=== PATIENT | male | born 1975 | race Caucasian/White ===

== ENCOUNTER 2017-06-24 15:08 | Emergency (ER) | payer BC ==
--- NOTE | 2017-06-24 15:27 | EDM.PDOC ---
ED HPI GENERAL MEDICAL PROBLEM - General Chief Complaint: Gastrointestinal Problem Stated Complaint: SICK Time Seen by Provider: 06/24/17 15:27 Source of Information: Reports: Patient - History of Present Illness INITIAL COMMENTS - FREE TEXT/NARRATIVE: HISTORY AND PHYSICAL: History of present illness: [Patient developed acute onset vomiting diarrhea and mild abdominal pain in the right lower quadrant this morning at 8 AM No fever chills or sweats no chest pain shortness breath or palpitation no bowel or urine symptoms mild headache Patient has a history of concussion last week he was seen through [facility] and head CT performed without acute findings per patient ] Review of systems: As per history of present illness and below otherwise all systems reviewed and negative. Past medical history: As per history of present illness and as reviewed below otherwise noncontributory. Surgical history: As per history of present illness and as reviewed below otherwise noncontributory. Social history: No reported history of drug or alcohol abuse. Family history: As per history of present illness and as reviewed below otherwise noncontributory. Physical exam: HEENT: Atraumatic, normocephalic, pupils reactive, negative for conjunctival pallor or scleral icterus, mucous membranes moist, throat clear, neck supple, nontender, trachea midline. Lungs: Clear to auscultation, breath sounds equal bilaterally, chest nontender. Heart: S1S2, regular, negative for clicks, rubs, or JVD. Abdomen: Soft, nondistended, tender in the right lower quadrant with no guarding or rebound. Negative for masses or hepatosplenomegaly. Negative for costovertebral tenderness. Pelvis: Stable nontender. Genitourinary: Deferred. Rectal: Deferred. Extremities: Atraumatic, negative for cords or calf pain. Neurovascular unremarkable. Neuro: Awake, alert, oriented. Cranial nerves II through XII unremarkable. Cerebellum unremarkable. Motor and sensory unremarkable throughout. Exam nonfocal. Diagnostics: [CBC CMP UA lipase Abdomen pelvis with contrast ] Therapeutics: [1 L normal saline bolus Zofran 8 mg IV ] Cipro 500 by mouth twice a day #20 no refill Impression: [ gastroenteritis ] Early evidence of mesenteric adenitis Definitive disposition and diagnosis as appropriate pending reevaluation and review of above. Abdomen Pain Score (Numeric/FACES): 6 - Related Data Allergies Allergy/AdvReac Type Severity Reaction Status Date / Time No Known Allergies Allergy Verified 06/24/17 15:38 Home Meds: Home Meds Levothyroxine [Synthroid] 88 mcg PO DAILY 06/24/17 [History] Testosterone Cypionate 200 mg IM 06/24/17 [History] buPROPion HCl [Wellbutrin Xl] 150 mg PO DAILY 06/24/17 [History] buPROPion HCl [Wellbutrin Xl] 300 mg PO DAILY 06/24/17 [History] ED ROS GENERAL - Review of Systems Review Of Systems: ROS reveals no pertinent complaints other than HPI. ED EXAM, GENERAL - Physical Exam Exam: See Below Course - Vital Signs Last Recorded V/S: Last Vital Signs Temp 96.9 F 06/24/17 16:35 Pulse 100 06/24/17 15:37 Resp 20 06/24/17 15:37 BP 134/80 06/24/17 15:37 Pulse Ox 98 06/24/17 15:37 - Orders/Labs/Meds Orders: Active Orders 24 hr Category Date Time Status Abdomen Pelvis w Cont [CT] Stat Exams 06/24/17 16:06 Taken UA W/MICROSCOPIC [URIN] Stat Lab 06/24/17 17:39 Ordered Labs: Laboratory Tests 06/24/17 06/24/17 Range/Units 15:33 15:33 WBC 13.71 H (4.0-11.0) K/uL RBC 5.29 (4.50-5.90) M/uL Hgb 16.3 (13.0-17.0) g/dL Hct 49.1 (38.0-50.0) % MCV 92.8 (80.0-98.0) fL MCH 30.8 (27.0-32.0) pg MCHC 33.2 (31.0-37.0) g/dL RDW Std Deviation 45.1 (28.0-62.0) fl RDW Coeff of Ebenezer 13 (11.0-15.0) % Plt Count 190 (150-400) K/uL MPV 11.70 (7.40-12.00) fL Neut % (Auto) 92.3 H (48.0-80.0) % Lymph % (Auto) 2.2 L (16.0-40.0) % [place] % (Auto) 4.7 (0.0-15.0) % Eos % (Auto) 0.7 (0.0-7.0) % Baso % (Auto) 0.1 (0.0-1.5) % Neut # (Auto) 12.6 H (1.4-5.7) K/uL Lymph # (Auto) 0.3 L (0.6-2.4) K/uL [place] # (Auto) 0.7 (0.0-0.8) K/uL Eos # (Auto) 0.1 (0.0-0.7) K/uL Baso # (Auto) 0.0 (0.0-0.1) K/uL Nucleated RBC % 0.0 /100WBC Nucleated RBCs # 0 K/uL Sodium 139 (136-148) mmol/L Potassium 4.4 (3.5-5.1) mmol/L Chloride 104 (98-107) mmol/L Carbon Dioxide 22.5 (21.0-32.0) mmol/L BUN 22 H (7.0-18.0) mg/dL Creatinine 1.3 (0.8-1.3) mg/dL Est Cr Clr Drug Dosing 92.34 mL/min Estimated GFR (MDRD) > 60.0 ml/min Glucose 142 H (74-106) mg/dL Calcium 9.3 (8.5-10.1) mg/dL Total Bilirubin 0.5 (0.2-1.0) mg/dL AST 21 (15-37) IU/L ALT 24 (14-63) IU/L Alkaline Phosphatase 75 (46-116) U/L Total Protein 7.7 (6.4-8.2) g/dL Albumin 4.3 (3.4-5.0) g/dL Globulin 3.4 (2.0-3.5) g/dL Albumin/Globulin Ratio 1.3 (1.3-2.8) Lipase 76 (73-393) U/L Meds: Medications Discontinued Medications Generic Name Dose Route Start Last Admin Trade Name Freq PRN Reason Stop Dose Admin Sodium Chloride 1,000 mls @ 999 mls/hr 06/24/17 16:01 06/24/17 16:33 Normal Saline IV 06/24/17 17:01 999 mls/hr STAT ONE Administration Iopamidol 100 ml 06/24/17 16:56 06/24/17 16:57 Isovue Multipack-370 (76%) IVPUSH 06/24/17 16:57 100 ml ONETIME STA Administration Ondansetron HCl 8 mg 06/24/17 16:01 06/24/17 16:31 Zofran IVPUSH 06/24/17 16:02 8 mg ONETIME ONE Administration Departure - Departure Time of Disposition: 17:46 Disposition: Home, Self-Care 01 Condition: Good Clinical Impression: Gastroenteritis, Mesenteric adenitis - Discharge Information Referrals: Lorene Yost NP [Primary Care Provider] - Forms: ED Department Discharge Additional Instructions: Fluid hydration techniques as discussed Return if symptoms persist or worsen Medication as prescribed Follow-up with primary care 2 weeks sooner as needed [facility] - Primary Care [address] [place] [id number] The following information is given to patients seen in the emergency department who are being discharged to home. This information is to outline your options for follow-up care. We provide all patients seen in our emergency department with a follow-up referral. The need for follow-up, as well as the timing and circumstances, are variable depending upon the specifics of your emergency department visit. If you don't have a primary care physician on staff, we will provide you with a referral. We always advise you to contact your personal physician following an emergency department visit to inform them of the circumstance of the visit and for follow-up with them and/or the need for any referrals to a consulting specialist. The emergency department will also refer you to a specialist when appropriate. This referral assures that you have the opportunity for follow-up care with a specialist. All of these measure are taken in an effort to provide you with optimal care, which includes your follow-up. Under all circumstances we always encourage you to contact your private physician who remains a resource for coordinating your care. When calling for follow-up care, please make the office aware that this follow-up is from your recent emergency room visit. If for any reason you are refused follow-up, please contact the [facility] emergency department at and asked to speak to the emergency department charge nurse. - My Orders Last 24 Hours: My Active Orders 06/24/17 16:06 Abdomen Pelvis w Cont [CT] Stat 06/24/17 17:39 UA W/MICROSCOPIC [URIN] Stat - Assessment/Plan Last 24 Hours: My Active Orders 06/24/17 16:06 Abdomen Pelvis w Cont [CT] Stat 06/24/17 17:39 UA W/MICROSCOPIC [URIN] Stat
[2017-06-24] MEDS ORDERED: Sodium Chloride 0.9% 1,000 ML IV ONE (16:01)
[2017-06-24] MEDS ORDERED: Ondansetron 4 MG/2 ML SDV IVPUSH ONE (16:01)
[2017-06-24 16:09] LABS: CHLORIDE,CL 104 mmol/L (98-107); SODIUM,NA 139 mmol/L (136-148)
[2017-06-24] MEDS ORDERED: Iopamidol 755 MG/ML 200 ML Multipack Bottle IVPUSH STA (16:56)
--- NOTE | 2017-06-25 13:33 | CT ---
EXAM DATE: 06/24/17 PATIENT'S AGE: 42 Patient: JANNET HERNANDEZ Facility: [place], [place] Site . Site : 1975 Study: CT Abdomen/Pelvis [id number] 4:59:36 PM Ordering Physician: Ranjan Mike Final Report: All INDICATION: Abdominal pain. Nausea/vomiting. Dizzy. TECHNIQUE: CT abdomen and pelvis performed after IV injection of 100 mL of Isovue-370. 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 Cholecystectomy. Moderate diffuse fatty Precious of liver. Minimal platelike atelectasis in the lung bases. Small bleb left lower lobe. Small low-density lesion along the surface of the right mid to upper posterior hepatic lobe on image 51 is nonspecific but appears benign. Spleen is mildly enlarged in AP dimension at 13.5 cm. Parapelvic cysts in both kidneys. High density in the right renal pelvis region could be related to Terence early excreted contrast but is not specific. Small amount of fluid in the lower anterior pelvis bilaterally consistent with prior surgery. Abnormal increased number of ill-defined nonenlarged aortocaval and left periaortic abdominal retroperitoneal lymph nodes are nonspecific in etiology. Benign etiology would be favored. Numerous tiny calcified nodules in the buttocks likely related to prior injections. Contents of the colon are largely fluid which could suggest the patient has diarrhea or stone will. No CT evidence for colitis. Small rounded density in the mid-anterior abdominal omentum on image 78 measures 1 cm and could be related to and small area of previous fatty necrosis. Remainder negative. IMPRESSION: 1. No acute disease in abdomen or pelvis. 2. Spleen mildly enlarged. 3. Contents of the colon are largely fluid which could suggest the patient has or will soon have diarrhea. No CT evidence of colitis. 4. Small amount of fluid in the pelvis anteriorly and bilaterally likely related to prior surgery. Please note that all CT scans at this facility use dose modulation, iterative reconstruction, and/or weight-based dosing when appropriate to reduce radiation dose to as low as reasonably achievable. Dictated by Danyel Mancuso MD @ Jun 24 2017 5:20PM (Electronic Signature) Report Signed by Proxy. MTDD
== END 2017-06-24 18:46 | disposition home or self-care (01) ==
LOC: MW.ED 15:08
DX: K52.9 Noninfective gastroenteritis and colitis, unspecified (principal); I88.0 Nonspecific mesenteric lymphadenitis; Z79.899 Other long term (current) drug therapy
CPT/HCPCS: 36415; 74177; 80053; 81001; 83690; 85025; 96361; 96374; 99284; J2405; J7040; Q9967

== ENCOUNTER 2017-11-03 19:00 | Observation (INO) | payer BC ==
[2017-11-03] MEDS ORDERED: Sodium Chloride 0.9% 2.5 ML Syringe FLUSH PRN (19:02)
[2017-11-03] MEDS ORDERED: Sodium Chloride 0.9% 1,000 ML IV ONE (19:02)
[2017-11-03] MEDS ORDERED: Sodium Chloride 0.9% 10 ML Syringe FLUSH PRN (19:02)
[2017-11-03] MEDS ORDERED: HYDROmorphone 1 MG/ML Syringe IVPUSH ONE (19:02)
[2017-11-03] MEDS ORDERED: Ondansetron 4 MG/2 ML SDV IVPUSH ONE (19:02)
--- NOTE | 2017-11-03 19:24 | EDM.PDOC ---
ED HPI GENERAL MEDICAL PROBLEM - General Chief Complaint: Trauma Stated Complaint: OBJECT FELL ON PT Time Seen by Provider: 11/03/17 19:00 - History of Present Illness INITIAL COMMENTS - FREE TEXT/NARRATIVE: HISTORY AND PHYSICAL: History of present illness: The patient is a 42-year-old male with a history of hypothyroidism who presents via EMS after a car fell onto his right femur while he was working on it. Prior to these events he was in his usual state of good health and had no systemic complaints and currently in the ED he is only complaining of pain at his right thigh area. He has no proximal hip or distal knee pain no tib-fib pain and says that he feels like his foot is slightly numb but doesn't feel cold and he can remove it. He has no other injuries to his other lower extremity on the left and trunk is without any injuries. He did not receive any pain medications in route and he last ate food at 4 PM. Is no chest pain shortness breath abdominal pain nausea vomiting and no head or neck or back pain. Tetanus is up-to-date per patient testimony Review of systems: As per history of present illness and below otherwise all systems reviewed and negative. Past medical history: As per history of present illness and as reviewed below otherwise noncontributory. Surgical history: As per history of present illness and as reviewed below otherwise noncontributory. Social history: No reported history of drug or alcohol abuse. Family history: As per history of present illness and as reviewed below otherwise noncontributory. Physical exam: General: Well-developed well-nourished overweight man who is nontoxic and vital signs are noted by me HEENT: Atraumatic, normocephalic, pupils reactive, negative for conjunctival pallor or scleral icterus, mucous membranes moist, throat clear, neck supple, nontender, trachea midline. There are no midline step-offs or defects of the cervical spine Lungs: Clear to auscultation, breath sounds equal bilaterally, chest nontender. Heart: S1S2, regular rate and rhythm no overt murmurs Abdomen: Soft, nondistended, nontender. Negative for masses or hepatosplenomegaly. NABS Pelvis: Stable nontender. No lateral hip tenderness Genitourinary: Deferred. Rectal: Deferred. Extremities: Atraumatic full range of motion of all extremities with the exception of the right lower extremity. At the anterior right thigh midpoints in the thigh there is visible significant indentation and trauma to the skin without any discrete skin break and there is swelling of the thigh but it is soft to palpation and tender. The proximal hip is without tenderness and the distal knee is also without tenderness defects deformity or soft tissue swelling. The patient can range of motion minimally at the hip and knee but there is discomfort in the femur area with this. Distally the patient has a strong triphasic posterior tib-fib pulse and a more distant dorsalis pedis by Doppler. Color is good in the distal foot as is motor and sensation and cap refill is normal. The legs are, negative for cords or calf pain. Neurovascular unremarkable. Neuro: Awake, alert, oriented. Cranial nerves II through XII unremarkable. Cerebellum unremarkable. Motor and sensory unremarkable throughout. Exam nonfocal. Diagnostics: X-ray of the right femur CBC CMP INR CPK type and screen CTA scan with contrast of the right lower extremity Therapeutics: IV fluids Dilaudid Zofran His case was called as a trauma alert and Dr. Peterson was at bedside at 19 10 PM. She is review the x-rays and would like a CT with contrast performed of the extremity as the proximity of the injury which is at mid thigh follows the course of the femoral artery and she is concerned. She has personally seen and evaluated the patient please her consult for details. CTA of the leg is still pending but at this point with the labs that have been obtained and the clinical presentation the patient will be admitted here for observation per Dr. Peterson. Please see her consult for further details and evaluation. Impression: Right thigh crush injury Definitive disposition and diagnosis as appropriate pending reevaluation and review of above. Right Upper Leg Pain Score (Numeric/FACES): 6 - Related Data Allergies Allergy/AdvReac Type Severity Reaction Status Date / Time No Known Allergies Allergy Verified 11/03/17 19:12 Home Meds: Home Meds Levothyroxine [Synthroid] 88 mcg PO DAILY 06/24/17 [History] Past Medical History HEENT History: Reports: None Cardiovascular History: Reports: None Respiratory History: Reports: None Genitourinary History: Reports: None Musculoskeletal History: Reports: None Neurological History: Reports: None Psychiatric History: Reports: Depression Endocrine/Metabolic History: Reports: Hypothyroidism Hematologic History: Reports: None Immunologic History: Reports: None Oncologic (Cancer) History: Reports: None Dermatologic History: Reports: None - Infectious Disease History Infectious Disease History: Reports: None - Past Surgical History Head Surgeries/Procedures: Reports: None GI Surgical History: Reports: Cholecystectomy, Hernia, Inguinal Social & Family History - Family History Family Medical History: Noncontributory - Tobacco Use Smoking Status *Q: Never Smoker - Caffeine Use Caffeine Use: Reports: None - Recreational Drug Use Recreational Drug Use: No Review of Systems - Review of Systems Review Of Systems: ROS reveals no pertinent complaints other than HPI. ED EXAM, GENERAL - Physical Exam Exam: See Below (See dictation) Course - Vital Signs Last Recorded V/S: Last Vital Signs Temp 35.8 C 11/03/17 19:00 Pulse 101 H 11/03/17 19:16 Resp 18 11/03/17 19:16 BP 141/94 H 11/03/17 19:16 Pulse Ox 100 11/03/17 19:16 - Orders/Labs/Meds Orders: Active Orders 24 hr Category Date Time Status Admission Status [Patient Status] [ADT] Stat ADT 11/03/17 19:14 Active Notify Provider Consults [RC] ASDIRECTED Care 11/03/17 19:18 Active Consult to Physician [CONS] Stat Cons 11/03/17 19:18 Active Ang Lower Extremity Rt [CT] Stat Exams 11/03/17 19:18 Ordered Femur Min 2V Rt [CR] Stat Exams 11/03/17 19:02 Taken TYPE AND SCREEN [BBK] Stat Lab 11/03/17 19:11 Received Sodium Chloride 0.9% [Saline Flush] Med 11/03/17 19:02 Active 10 ml FLUSH ASDIRECTED PRN Sodium Chloride 0.9% [Saline Flush] Med 11/03/17 19:02 Active 2.5 ml FLUSH ASDIRECTED PRN Saline Lock Insert [OM.PC] Stat Oth 11/03/17 19:02 Ordered Medication Orders Sodium Chloride (Saline Flush) 10 ml FLUSH ASDIRECTED PRN PRN Reason: Keep Vein Open Sodium Chloride (Saline Flush) 2.5 ml FLUSH ASDIRECTED PRN PRN Reason: Keep Vein Open Labs: Laboratory Tests 11/03/17 11/03/17 11/03/17 Range/Units 19:11 19:11 19:11 WBC 9.32 (4.0-11.0) K/uL RBC 4.81 (4.50-5.90) M/uL Hgb 14.9 (13.0-17.0) g/dL Hct 43.6 (38.0-50.0) % MCV 90.6 (80.0-98.0) fL MCH 31.0 (27.0-32.0) pg MCHC 34.2 (31.0-37.0) g/dL RDW Std Deviation 42.2 (28.0-62.0) fl RDW Coeff of Ebenezer 13 (11.0-15.0) % Plt Count 199 (150-400) K/uL MPV 11.10 (7.40-12.00) fL Neut % (Auto) 53.8 (48.0-80.0) % Lymph % (Auto) 30.4 (16.0-40.0) % [place] % (Auto) 12.6 (0.0-15.0) % Eos % (Auto) 2.6 (0.0-7.0) % Baso % (Auto) 0.6 (0.0-1.5) % Neut # (Auto) 5.0 (1.4-5.7) K/uL Lymph # (Auto) 2.8 H (0.6-2.4) K/uL [place] # (Auto) 1.2 H (0.0-0.8) K/uL Eos # (Auto) 0.2 (0.0-0.7) K/uL Baso # (Auto) 0.1 (0.0-0.1) K/uL Nucleated RBC % 0.0 /100WBC Nucleated RBCs # 0 K/uL INR 0.98 Sodium 137 (136-148) mmol/L Potassium 3.4 L (3.5-5.1) mmol/L Chloride 101 (98-107) mmol/L Carbon Dioxide 22.1 (21.0-32.0) mmol/L BUN 20 H (7.0-18.0) mg/dL Creatinine 1.3 (0.8-1.3) mg/dL Est Cr Clr Drug Dosing TNP Estimated GFR (MDRD) > 60.0 ml/min Glucose 97 (74-106) mg/dL Calcium 9.0 (8.5-10.1) mg/dL Total Bilirubin 0.2 (0.2-1.0) mg/dL AST 15 (15-37) IU/L ALT 21 (14-63) IU/L Alkaline Phosphatase 67 (46-116) U/L Creatine Kinase 167 (26-308) U/L Total Protein 7.0 (6.4-8.2) g/dL Albumin 3.9 (3.4-5.0) g/dL Globulin 3.1 (2.0-3.5) g/dL Albumin/Globulin Ratio 1.3 (1.3-2.8) Urine Color Urine Appearance Urine pH (5.0-8.0) Ur Specific [place] (1.001-1.035) Urine Protein (NEGATIVE) mg/dL Urine Glucose (UA) (NEGATIVE) mg/dL Urine Ketones (NEGATIVE) mg/dL Urine Occult Blood (NEGATIVE) Urine Nitrite (NEGATIVE) Urine Bilirubin (NEGATIVE) Urine Urobilinogen (<2.0) EU/dL Ur Leukocyte Esterase (NEGATIVE) 11/03/17 Range/Units 19:20 WBC (4.0-11.0) K/uL RBC (4.50-5.90) M/uL Hgb (13.0-17.0) g/dL Hct (38.0-50.0) % MCV (80.0-98.0) fL MCH (27.0-32.0) pg MCHC (31.0-37.0) g/dL RDW Std Deviation (28.0-62.0) fl RDW Coeff of Ebenezer (11.0-15.0) % Plt Count (150-400) K/uL MPV (7.40-12.00) fL Neut % (Auto) (48.0-80.0) % Lymph % (Auto) (16.0-40.0) % [place] % (Auto) (0.0-15.0) % Eos % (Auto) (0.0-7.0) % Baso % (Auto) (0.0-1.5) % Neut # (Auto) (1.4-5.7) K/uL Lymph # (Auto) (0.6-2.4) K/uL [place] # (Auto) (0.0-0.8) K/uL Eos # (Auto) (0.0-0.7) K/uL Baso # (Auto) (0.0-0.1) K/uL Nucleated RBC % /100WBC Nucleated RBCs # K/uL INR Sodium (136-148) mmol/L Potassium (3.5-5.1) mmol/L Chloride (98-107) mmol/L Carbon Dioxide (21.0-32.0) mmol/L BUN (7.0-18.0) mg/dL Creatinine (0.8-1.3) mg/dL Est Cr Clr Drug Dosing Estimated GFR (MDRD) ml/min Glucose (74-106) mg/dL Calcium (8.5-10.1) mg/dL Total Bilirubin (0.2-1.0) mg/dL AST (15-37) IU/L ALT (14-63) IU/L Alkaline Phosphatase (46-116) U/L Creatine Kinase (26-308) U/L Total Protein (6.4-8.2) g/dL Albumin (3.4-5.0) g/dL Globulin (2.0-3.5) g/dL Albumin/Globulin Ratio (1.3-2.8) Urine Color YELLOW Urine Appearance CLEAR Urine pH 5.5 (5.0-8.0) Ur Specific [place] 1.010 (1.001-1.035) Urine Protein NEGATIVE (NEGATIVE) mg/dL Urine Glucose (UA) NEGATIVE (NEGATIVE) mg/dL Urine Ketones NEGATIVE (NEGATIVE) mg/dL Urine Occult Blood TRACE-INTACT (NEGATIVE) Urine Nitrite NEGATIVE (NEGATIVE) Urine Bilirubin NEGATIVE (NEGATIVE) Urine Urobilinogen 0.2 (<2.0) EU/dL Ur Leukocyte Esterase NEGATIVE (NEGATIVE) Meds: Medications Generic Name Dose Route Start Last Admin Trade Name Freq PRN Reason Stop Dose Admin Sodium Chloride 10 ml 11/03/17 19:02 Saline Flush FLUSH ASDIRECTED PRN Keep Vein Open Sodium Chloride 2.5 ml 11/03/17 19:02 Saline Flush FLUSH ASDIRECTED PRN Keep Vein Open Discontinued Medications Generic Name Dose Route Start Last Admin Trade Name Freq PRN Reason Stop Dose Admin Hydromorphone HCl 1 mg 11/03/17 19:02 11/03/17 19:13 Dilaudid IVPUSH 11/03/17 19:03 1 mg ONETIME ONE Administration Sodium Chloride 1,000 mls @ 999 mls/hr 11/03/17 19:02 11/03/17 19:12 Normal Saline IV 11/03/17 20:02 999 mls/hr .Bolus ONE Administration Ondansetron HCl 4 mg 11/03/17 19:02 11/03/17 19:13 Zofran IVPUSH 11/03/17 19:03 4 mg ONETIME ONE Administration Departure - Departure Time of Disposition: 20:13 Disposition: Refer to Observation Condition: Good Clinical Impression: Crushing injury of thigh Qualifiers: Encounter type: initial encounter Laterality: right Qualified Code(s): S77.11XA - Crushing injury of right thigh, initial encounter - Discharge Information Forms: ED Department Discharge - My Orders Last 24 Hours: My Active Orders 11/03/17 19:02 Femur Min 2V Rt [CR] Stat Sodium Chloride 0.9% [Saline Flush] 10 ml FLUSH ASDIRECTED PRN Sodium Chloride 0.9% [Saline Flush] 2.5 ml FLUSH ASDIRECTED PRN Saline Lock Insert [OM.PC] Stat 11/03/17 19:11 TYPE AND SCREEN [BBK] Stat 11/03/17 19:14 Admission Status [Patient Status] [ADT] Stat 11/03/17 19:18 Notify Provider Consults [RC] ASDIRECTED Consult to Physician [CONS] Stat Ang Lower Extremity Rt [CT] Stat - Assessment/Plan Last 24 Hours: My Active Orders 11/03/17 19:02 Femur Min 2V Rt [CR] Stat Sodium Chloride 0.9% [Saline Flush] 10 ml FLUSH ASDIRECTED PRN Sodium Chloride 0.9% [Saline Flush] 2.5 ml FLUSH ASDIRECTED PRN Saline Lock Insert [OM.PC] Stat 11/03/17 19:11 TYPE AND SCREEN [BBK] Stat 11/03/17 19:14 Admission Status [Patient Status] [ADT] Stat 11/03/17 19:18 Notify Provider Consults [RC] ASDIRECTED Consult to Physician [CONS] Stat Ang Lower Extremity Rt [CT] Stat
[2017-11-03 19:43] LABS: CHLORIDE,CL 101 mmol/L (98-107); SODIUM,NA 137 mmol/L (136-148)
--- NOTE | 2017-11-03 20:16 | PCM.HP ---
H&P History of Present Illness - General Date of Service: 11/03/17 Admit Problem/Dx: Admission Diagnosis/Problem Admission Diagnosis/Problem Traumatic injury Source of Information: Patient History Limitations: Reports: No Limitations - History of Present Illness Initial Comments - Free Text/Narative: Patient is a 42 year old male who was working on a car tonight when it fell on his right upper thigh. He was pinned for several minutes before his family was able to lift the car off of him. He denies LOC or any trauma to anything else. He has pain with flexion of the knee. He denies loss of motor function and denies any neurologic deficit. He drank a couple beers earlier during the day but this was hours ago. Right Upper Leg Pain Score (Numeric/FACES): 6 - Related Data Allergies/Adverse Reactions: Allergies Allergy/AdvReac Type Severity Reaction Status Date / Time No Known Allergies Allergy Verified 11/03/17 19:12 Home Medications: Home Meds Levothyroxine [Synthroid] 88 mcg PO DAILY 06/24/17 [History] Past Medical History HEENT History: Reports: None Cardiovascular History: Reports: None Respiratory History: Reports: None Genitourinary History: Reports: None Musculoskeletal History: Reports: None Neurological History: Reports: None Psychiatric History: Reports: Depression Endocrine/Metabolic History: Reports: Hypothyroidism Hematologic History: Reports: None Immunologic History: Reports: None Oncologic (Cancer) History: Reports: None Dermatologic History: Reports: None - Infectious Disease History Infectious Disease History: Reports: None - Past Surgical History Head Surgeries/Procedures: Reports: None GI Surgical History: Reports: Cholecystectomy, Hernia, Abdominal, Hernia, Inguinal Social & Family History - Family History Family Medical History: Noncontributory - Tobacco Use Smoking Status *Q: Never Smoker - Caffeine Use Caffeine Use: Reports: None - Recreational Drug Use Recreational Drug Use: No H&P Review of Systems - Review of Systems: Review Of Systems: ROS reveals no pertinent complaints other than HPI. Exam - Exam Exam: See Below - Vital Signs Vital Signs: Last Vital Signs Temp 35.8 C 11/03/17 19:00 Pulse 101 H 11/03/17 19:16 Resp 18 11/03/17 19:16 BP 141/94 H 11/03/17 19:16 Pulse Ox 100 11/03/17 19:16 Weight: 120 kg - Exam General: Alert, Oriented HEENT: Conjunctiva Clear, Mucosa Moist & Decker, Posterior Pharynx Clear Neck: Supple, Trachea Midline, 2 Lungs: Clear to Auscultation, Normal Respiratory Effort Cardiovascular: Regular Rate, Regular Rhythm GI/Abdominal Exam: Normal Bowel Sounds, Soft, Non-Tender, No Organomegaly, No Distention, No Abnormal Bruit, No Mass, Pelvis Stable Back Exam: Normal Inspection, Full Range of Motion, NT Extremities: Other (Bruising and indentation along the medial mid thigh. A large amount of swelling around this area. Tender to palpation. ) Peripheral Pulses: 2+: Femoral (R), Popliteal (R), Posterior Tibial (L), Posterior Tibial (R), Dorsalis Pedis (L), Dorsalis Pedis (R) Skin: Warm, Dry, Intact Neuro Extensive - Mental Status: Alert, Oriented x3, Normal Mood/Affect, Normal Cognition Psychiatric: Alert, Normal Affect, Normal Mood - Patient Data Lab Results Last 24 hrs: Laboratory Results - last 24 hr 11/03/17 11/03/17 11/03/17 Range/Units 19:11 19:11 19:11 WBC 9.32 (4.0-11.0) K/uL RBC 4.81 (4.50-5.90) M/uL Hgb 14.9 (13.0-17.0) g/dL Hct 43.6 (38.0-50.0) % MCV 90.6 (80.0-98.0) fL MCH 31.0 (27.0-32.0) pg MCHC 34.2 (31.0-37.0) g/dL RDW Std Deviation 42.2 (28.0-62.0) fl RDW Coeff of [place]ene[place] 13 (11.0-15.0) % Plt Count 199 (150-400) K/uL MPV 11.10 (7.40-12.00) fL Neut % (Auto) 53.8 (48.0-80.0) % Lymph % (Auto) 30.4 (16.0-40.0) % [place] % (Auto) 12.6 (0.0-15.0) % Eos % (Auto) 2.6 (0.0-7.0) % Baso % (Auto) 0.6 (0.0-1.5) % Neut # (Auto) 5.0 (1.4-5.7) K/uL Lymph # (Auto) 2.8 H (0.6-2.4) K/uL [place] # (Auto) 1.2 H (0.0-0.8) K/uL Eos # (Auto) 0.2 (0.0-0.7) K/uL Baso # (Auto) 0.1 (0.0-0.1) K/uL Nucleated RBC % 0.0 /100WBC Nucleated RBCs # 0 K/uL INR 0.98 Sodium 137 (136-148) mmol/L Potassium 3.4 L (3.5-5.1) mmol/L Chloride 101 (98-107) mmol/L Carbon Dioxide 22.1 (21.0-32.0) mmol/L BUN 20 H (7.0-18.0) mg/dL Creatinine 1.3 (0.8-1.3) mg/dL Est Cr Clr Drug Dosing TNP Estimated GFR (MDRD) > 60.0 ml/min Glucose 97 (74-106) mg/dL Calcium 9.0 (8.5-10.1) mg/dL Total Bilirubin 0.2 (0.2-1.0) mg/dL AST 15 (15-37) IU/L ALT 21 (14-63) IU/L Alkaline Phosphatase 67 (46-116) U/L Creatine Kinase 167 (26-308) U/L Total Protein 7.0 (6.4-8.2) g/dL Albumin 3.9 (3.4-5.0) g/dL Globulin 3.1 (2.0-3.5) g/dL Albumin/Globulin Ratio 1.3 (1.3-2.8) Urine Color Urine Appearance Urine pH (5.0-8.0) Ur Specific [place] (1.001-1.035) Urine Protein (NEGATIVE) mg/dL Urine Glucose (UA) (NEGATIVE) mg/dL Urine Ketones (NEGATIVE) mg/dL Urine Occult Blood (NEGATIVE) Urine Nitrite (NEGATIVE) Urine Bilirubin (NEGATIVE) Urine Urobilinogen (<2.0) EU/dL Ur Leukocyte Esterase (NEGATIVE) 11/03/17 Range/Units 19:20 WBC (4.0-11.0) K/uL RBC (4.50-5.90) M/uL Hgb (13.0-17.0) g/dL Hct (38.0-50.0) % MCV (80.0-98.0) fL MCH (27.0-32.0) pg MCHC (31.0-37.0) g/dL RDW Std Deviation (28.0-62.0) fl RDW Coeff of [place] (11.0-15.0) % Plt Count (150-400) K/uL MPV (7.40-12.00) fL Neut % (Auto) (48.0-80.0) % Lymph % (Auto) (16.0-40.0) % [place] % (Auto) (0.0-15.0) % Eos % (Auto) (0.0-7.0) % Baso % (Auto) (0.0-1.5) % Neut # (Auto) (1.4-5.7) K/uL Lymph # (Auto) (0.6-2.4) K/uL [place] # (Auto) (0.0-0.8) K/uL Eos # (Auto) (0.0-0.7) K/uL Baso # (Auto) (0.0-0.1) K/uL Nucleated RBC % /100WBC Nucleated RBCs # K/uL INR Sodium (136-148) mmol/L Potassium (3.5-5.1) mmol/L Chloride (98-107) mmol/L Carbon Dioxide (21.0-32.0) mmol/L BUN (7.0-18.0) mg/dL Creatinine (0.8-1.3) mg/dL Est Cr Clr Drug Dosing Estimated GFR (MDRD) ml/min Glucose (74-106) mg/dL Calcium (8.5-10.1) mg/dL Total Bilirubin (0.2-1.0) mg/dL AST (15-37) IU/L ALT (14-63) IU/L Alkaline Phosphatase (46-116) U/L Creatine Kinase (26-308) U/L Total Protein (6.4-8.2) g/dL Albumin (3.4-5.0) g/dL Globulin (2.0-3.5) g/dL Albumin/Globulin Ratio (1.3-2.8) Urine Color YELLOW Urine Appearance CLEAR Urine pH 5.5 (5.0-8.0) Ur Specific [place] 1.010 (1.001-1.035) Urine Protein NEGATIVE (NEGATIVE) mg/dL Urine Glucose (UA) NEGATIVE (NEGATIVE) mg/dL Urine Ketones NEGATIVE (NEGATIVE) mg/dL Urine Occult Blood TRACE-INTACT (NEGATIVE) Urine Nitrite NEGATIVE (NEGATIVE) Urine Bilirubin NEGATIVE (NEGATIVE) Urine Urobilinogen 0.2 (<2.0) EU/dL Ur Leukocyte Esterase NEGATIVE (NEGATIVE) Result Diagrams: 11/03/17 19:11 11/03/17 19:11 - Problem List (1) Crushing injury of leg, right SNOMED Code(s): 06576366 ICD Code: S87.81XA - CRUSHING INJURY OF RIGHT LOWER LEG, INITIAL ENCOUNTER Status: Acute Current Visit: Yes Problem List Initiated/Reviewed/Updated: Yes Orders Last 24hrs: Active Orders 24 hr Category Date Time Status Admission Status [Patient Status] [ADT] Stat ADT 11/03/17 19:14 Active Notify Provider Consults [RC] ASDIRECTED Care 11/03/17 19:18 Active Consult to Physician [CONS] Stat Cons 11/03/17 19:18 Active Ang Lower Extremity Rt [CT] Stat Exams 11/03/17 19:18 Ordered Femur Min 2V Rt [CR] Stat Exams 11/03/17 19:02 Taken TYPE AND SCREEN [BBK] Stat Lab 11/03/17 19:11 Received Sodium Chloride 0.9% [Saline Flush] Med 11/03/17 19:02 Active 10 ml FLUSH ASDIRECTED PRN Sodium Chloride 0.9% [Saline Flush] Med 11/03/17 19:02 Active 2.5 ml FLUSH ASDIRECTED PRN Saline Lock Insert [OM.PC] Stat Oth 11/03/17 19:02 Ordered Medication Orders Sodium Chloride (Saline Flush) 10 ml FLUSH ASDIRECTED PRN PRN Reason: Keep Vein Open Sodium Chloride (Saline Flush) 2.5 ml FLUSH ASDIRECTED PRN PRN Reason: Keep Vein Open Assessment/Plan Comment:: Patient is a 42 year old male with a crush injury to the right leg. His CK is within normal limits. ABIs were normal on this leg. CTA of the left upper thigh shows muscle contusion but no arterial trauma. I am currently awaiting the final read. The patient will be admitted for observation overnight. Will check serial CKs at midnight and every six hours after that. The patient can have a regular diet. IVF @150ml/hr. Ok to walk with assistance.
[2017-11-03] MEDS ORDERED: Iopamidol 755 MG/ML 200 ML Multipack Bottle IVPUSH STA (20:25)
[2017-11-03] MEDS ORDERED: HYDROmorphone 1 MG/ML Syringe IVPUSH PRN (20:25)
[2017-11-03] MEDS ORDERED: Acetaminophen/HYDROcodone 325-5 MG Tab PO PRN (20:25)
[2017-11-03] MEDS: Sodium Chloride 0.9% 1,000 ML IV SCH (21:41)
[2017-11-03] MEDS: Ondansetron 4 MG/2 ML SDV IVPUSH PRN (21:42)
[2017-11-04] MEDS: Ondansetron 4 MG/2 ML SDV IVPUSH PRN (01:06)
[2017-11-04] MEDS: Sodium Chloride 0.9% 1,000 ML IV SCH ×2 (04:05→11:42)
[2017-11-04 07:23] LABS: CHLORIDE,CL 104 mmol/L (98-107); SODIUM,NA 137 mmol/L (136-148)
[2017-11-04] MEDS ORDERED: Levothyroxine 88 MCG Tab PO SCH (08:15)
[2017-11-04] MEDS ORDERED: Aspirin 81 MG Tab.Chew PO SCH (09:00)
[2017-11-04] MEDS ORDERED: Enoxaparin 40 MG/0.4 ML Syringe SUBCUT SCH (09:00)
--- NOTE | 2017-11-04 09:12 | PCM.PN ---
- General Info Date of Service: 11/04/17 Subjective Update: Patient c/o increased pain around brusing and localized paresthesia. The dilaudid improved his pain last evening but made him nauseous. He was given zofran with good relief. He is currently waiting for his am pain meds. He denies any other new loss of neurologic sensation/function. He denies motor weakness. He tolerated a regular diet. He is urinating without difficulty and it is clear. - Review of Systems General: Reports: No Symptoms HEENT: Reports: No Symptoms Pulmonary: Reports: No Symptoms Cardiovascular: Reports: No Symptoms Gastrointestinal: Reports: No Symptoms Genitourinary: Reports: No Symptoms Musculoskeletal: Reports: Leg Pain - Patient Data Vitals - Most Recent: Last Vital Signs Temp 36.8 C 11/04/17 04:00 Pulse 92 11/04/17 04:00 Resp 16 11/04/17 04:00 BP 128/82 11/04/17 04:00 Pulse Ox 92 L 11/04/17 04:00 Weight - Most Recent: 120 kg I&O - Last 24 Hours: Intake & Output 11/03/17 11/04/17 11/04/17 22:59 06:59 14:59 Intake Total 1000 600 Output Total 2000 Balance 1000 -1400 Lab Results Last 24 Hours: Laboratory Results - last 24 hr 11/03/17 11/03/17 11/03/17 Range/Units 19:11 19:11 19:11 WBC 9.32 (4.0-11.0) K/uL RBC 4.81 (4.50-5.90) M/uL Hgb 14.9 (13.0-17.0) g/dL Hct 43.6 (38.0-50.0) % MCV 90.6 (80.0-98.0) fL MCH 31.0 (27.0-32.0) pg MCHC 34.2 (31.0-37.0) g/dL RDW Std Deviation 42.2 (28.0-62.0) fl RDW Coeff of Ebenezer 13 (11.0-15.0) % Plt Count 199 (150-400) K/uL MPV 11.10 (7.40-12.00) fL Neut % (Auto) 53.8 (48.0-80.0) % Lymph % (Auto) 30.4 (16.0-40.0) % [place] % (Auto) 12.6 (0.0-15.0) % Eos % (Auto) 2.6 (0.0-7.0) % Baso % (Auto) 0.6 (0.0-1.5) % Neut # (Auto) 5.0 (1.4-5.7) K/uL Lymph # (Auto) 2.8 H (0.6-2.4) K/uL [place] # (Auto) 1.2 H (0.0-0.8) K/uL Eos # (Auto) 0.2 (0.0-0.7) K/uL Baso # (Auto) 0.1 (0.0-0.1) K/uL Nucleated RBC % 0.0 /100WBC Nucleated RBCs # 0 K/uL INR 0.98 Sodium 137 (136-148) mmol/L Potassium 3.4 L (3.5-5.1) mmol/L Chloride 101 (98-107) mmol/L Carbon Dioxide 22.1 (21.0-32.0) mmol/L BUN 20 H (7.0-18.0) mg/dL Creatinine 1.3 (0.8-1.3) mg/dL Est Cr Clr Drug Dosing TNP Estimated GFR (MDRD) > 60.0 ml/min Glucose 97 (74-106) mg/dL Calcium 9.0 (8.5-10.1) mg/dL Total Bilirubin 0.2 (0.2-1.0) mg/dL AST 15 (15-37) IU/L ALT 21 (14-63) IU/L Alkaline Phosphatase 67 (46-116) U/L Creatine Kinase 167 (26-308) U/L Total Protein 7.0 (6.4-8.2) g/dL Albumin 3.9 (3.4-5.0) g/dL Globulin 3.1 (2.0-3.5) g/dL Albumin/Globulin Ratio 1.3 (1.3-2.8) Urine Color Urine Appearance Urine pH (5.0-8.0) Ur Specific [place] (1.001-1.035) Urine Protein (NEGATIVE) mg/dL Urine Glucose (UA) (NEGATIVE) mg/dL Urine Ketones (NEGATIVE) mg/dL Urine Occult Blood (NEGATIVE) Urine Nitrite (NEGATIVE) Urine Bilirubin (NEGATIVE) Urine Urobilinogen (<2.0) EU/dL Ur Leukocyte Esterase (NEGATIVE) Blood Type Antibody Screen 11/03/17 11/03/17 11/04/17 Range/Units 19:11 19:20 00:22 WBC (4.0-11.0) K/uL RBC (4.50-5.90) M/uL Hgb (13.0-17.0) g/dL Hct (38.0-50.0) % MCV (80.0-98.0) fL MCH (27.0-32.0) pg MCHC (31.0-37.0) g/dL RDW Std Deviation (28.0-62.0) fl RDW Coeff of [place]enezer (11.0-15.0) % Plt Count (150-400) K/uL MPV (7.40-12.00) fL Neut % (Auto) (48.0-80.0) % Lymph % (Auto) (16.0-40.0) % [place] % (Auto) (0.0-15.0) % Eos % (Auto) (0.0-7.0) % Baso % (Auto) (0.0-1.5) % Neut # (Auto) (1.4-5.7) K/uL Lymph # (Auto) (0.6-2.4) K/uL [place] # (Auto) (0.0-0.8) K/uL Eos # (Auto) (0.0-0.7) K/uL Baso # (Auto) (0.0-0.1) K/uL Nucleated RBC % /100WBC Nucleated RBCs # K/uL INR Sodium (136-148) mmol/L Potassium (3.5-5.1) mmol/L Chloride (98-107) mmol/L Carbon Dioxide (21.0-32.0) mmol/L BUN (7.0-18.0) mg/dL Creatinine (0.8-1.3) mg/dL Est Cr Clr Drug Dosing Estimated GFR (MDRD) ml/min Glucose (74-106) mg/dL Calcium (8.5-10.1) mg/dL Total Bilirubin (0.2-1.0) mg/dL AST (15-37) IU/L ALT (14-63) IU/L Alkaline Phosphatase (46-116) U/L Creatine Kinase 318 H (26-308) U/L Total Protein (6.4-8.2) g/dL Albumin (3.4-5.0) g/dL Globulin (2.0-3.5) g/dL Albumin/Globulin Ratio (1.3-2.8) Urine Color YELLOW Urine Appearance CLEAR Urine pH 5.5 (5.0-8.0) Ur Specific [place] 1.010 (1.001-1.035) Urine Protein NEGATIVE (NEGATIVE) mg/dL Urine Glucose (UA) NEGATIVE (NEGATIVE) mg/dL Urine Ketones NEGATIVE (NEGATIVE) mg/dL Urine Occult Blood TRACE-INTACT (NEGATIVE) Urine Nitrite NEGATIVE (NEGATIVE) Urine Bilirubin NEGATIVE (NEGATIVE) Urine Urobilinogen 0.2 (<2.0) EU/dL Ur Leukocyte Esterase NEGATIVE (NEGATIVE) Blood Type O POSITIVE Antibody Screen NEGATIVE 11/04/17 Range/Units 06:53 WBC (4.0-11.0) K/uL RBC (4.50-5.90) M/uL Hgb (13.0-17.0) g/dL Hct (38.0-50.0) % MCV (80.0-98.0) fL MCH (27.0-32.0) pg MCHC (31.0-37.0) g/dL RDW Std Deviation (28.0-62.0) fl RDW Coeff of [place]enezer (11.0-15.0) % Plt Count (150-400) K/uL MPV (7.40-12.00) fL Neut % (Auto) (48.0-80.0) % Lymph % (Auto) (16.0-40.0) % [place] % (Auto) (0.0-15.0) % Eos % (Auto) (0.0-7.0) % Baso % (Auto) (0.0-1.5) % Neut # (Auto) (1.4-5.7) K/uL Lymph # (Auto) (0.6-2.4) K/uL [place] # (Auto) (0.0-0.8) K/uL Eos # (Auto) (0.0-0.7) K/uL Baso # (Auto) (0.0-0.1) K/uL Nucleated RBC % /100WBC Nucleated RBCs # K/uL INR Sodium 137 (136-148) mmol/L Potassium 4.6 (3.5-5.1) mmol/L Chloride 104 (98-107) mmol/L Carbon Dioxide 21.2 (21.0-32.0) mmol/L BUN 12 (7.0-18.0) mg/dL Creatinine 0.8 (0.8-1.3) mg/dL Est Cr Clr Drug Dosing 130.86 Estimated GFR (MDRD) > 60.0 ml/min Glucose 103 (74-106) mg/dL Calcium 8.3 L (8.5-10.1) mg/dL Total Bilirubin (0.2-1.0) mg/dL AST (15-37) IU/L ALT (14-63) IU/L Alkaline Phosphatase (46-116) U/L Creatine Kinase 470 H (26-308) U/L Total Protein (6.4-8.2) g/dL Albumin (3.4-5.0) g/dL Globulin (2.0-3.5) g/dL Albumin/Globulin Ratio (1.3-2.8) Urine Color Urine Appearance Urine pH (5.0-8.0) Ur Specific [place] (1.001-1.035) Urine Protein (NEGATIVE) mg/dL Urine Glucose (UA) (NEGATIVE) mg/dL Urine Ketones (NEGATIVE) mg/dL Urine Occult Blood (NEGATIVE) Urine Nitrite (NEGATIVE) Urine Bilirubin (NEGATIVE) Urine Urobilinogen (<2.0) EU/dL Ur Leukocyte Esterase (NEGATIVE) Blood Type Antibody Screen Med Orders - Current: Current Medications Hydrocodone Bitart/Acetaminophen ([place] 325-5 Mg) 2 tab PO Q4H PRN PRN Reason: Pain (moderate 4-6) Last Admin: 11/04/17 08:19 Dose: 2 tab Aspirin (Aspirin) 81 mg PO DAILY [facility] Last Admin: 11/04/17 08:20 Dose: 81 mg Enoxaparin Sodium (Lovenox) 40 mg SUBCUT Q24H [facility] Last Admin: 11/04/17 08:21 Dose: 40 mg Hydromorphone HCl (Dilaudid) 0.5 mg IVPUSH Q1H PRN PRN Reason: Pain (severe 7-10) Last Admin: 11/04/17 01:03 Dose: 0.5 mg Sodium Chloride (Normal Saline) 1,000 mls @ 150 mls/hr IV ASDIRECTED [facility] Last Admin: 11/04/17 04:05 Dose: 150 mls/hr Influenza Virus Vaccine (Pharmacy To Dose - Influenza Vaccine) 1 each IM ONETIME ONE Stop: 11/04/17 10:01 Levothyroxine Sodium (Synthroid) 88 mcg PO ACBREAKFAST [facility] Last Admin: 11/04/17 08:19 Dose: 88 mcg Ondansetron HCl (Zofran) 4 mg IVPUSH Q6H PRN PRN Reason: Nausea/Vomiting Last Admin: 11/04/17 01:06 Dose: 4 mg Sodium Chloride (Saline Flush) 10 ml FLUSH ASDIRECTED PRN PRN Reason: Keep Vein Open Sodium Chloride (Saline Flush) 2.5 ml FLUSH ASDIRECTED PRN PRN Reason: Keep Vein Open Discontinued Medications Hydromorphone HCl (Dilaudid) 1 mg IVPUSH ONETIME ONE Stop: 11/03/17 19:03 Last Admin: 11/03/17 19:13 Dose: 1 mg Sodium Chloride (Normal Saline) 1,000 mls @ 999 mls/hr IV .Bolus ONE Stop: 11/03/17 20:02 Last Admin: 11/03/17 19:12 Dose: 999 mls/hr Iopamidol (Isovue Multipack-370 (76%)) 100 ml IVPUSH ONETIME STA Stop: 11/03/17 20:26 Last Admin: 11/03/17 20:26 Dose: 100 ml Ondansetron HCl (Zofran) 4 mg IVPUSH ONETIME ONE Stop: 11/03/17 19:03 Last Admin: 11/03/17 19:13 Dose: 4 mg - Exam General: Alert, Oriented Lungs: Normal Respiratory Effort Cardiovascular: Regular Rate GI/Abdominal Exam: Soft Extremities: Other (Increased brusing and swelling around mid-medial thigh trauma site. Motor exam normal. ) Peripheral Pulses: 2+: Posterior Tibial (R), Dorsalis Pedis (R) Skin: Warm, Dry, Intact Neurological: No New Focal Deficit Psy/Mental Status: Alert, Normal Affect, Normal Mood - Problem List & Annotations (1) Crushing injury of leg, right SNOMED Code(s): 92521744 Code(s): S87.81XA - CRUSHING INJURY OF RIGHT LOWER LEG, INITIAL ENCOUNTER Status: Acute Current Visit: Yes - Problem List Review Problem List Initiated/Reviewed/Updated: Yes - My Orders Last 24 Hours: My Active Orders 11/03/17 20:25 May Shower [RC] ASDIRECTED RT Incentive Spirometry [RC] Q1HWA Up With Assistance [RC] ASDIRECTED Acetaminophen/HYDROcodone [[place] 325-5 MG] 2 tab PO Q4H PRN HYDROmorphone [Dilaudid] 0.5 mg IVPUSH Q1H PRN Ondansetron [Zofran] 4 mg IVPUSH Q6H PRN Resuscitation Status Routine 11/03/17 20:26 Patient Status [ADT] Routine Oxygen Therapy [RC] PRN Vital Signs [RC] PER UNIT ROUTINE 11/03/17 20:30 Sodium Chloride 0.9% [Normal Saline] 1,000 ml IV ASDIRECTED 11/03/17 Dinner Regular Diet [DIET] 11/04/17 07:40 Communication Order [RC] PER UNIT ROUTINE 11/04/17 08:15 Levothyroxine [Synthroid] 88 mcg PO ACBREAKFAST 11/04/17 09:00 Aspirin 81 mg PO DAILY Enoxaparin [Lovenox] 40 mg SUBCUT Q24H 11/04/17 10:00 FLU Vacc [id number] 36MOS UP/PF [Fluzone Quad [id number] Syringe] 60 mcg IM .ONCE ONE Pharmacy to Dose [Pharmacy to Dose - InFluenza Vaccine] 1 each IM ONETIME ONE 11/04/17 12:00 CREATINE KINASE,CK [CHEM] Routine 11/04/17 18:00 CREATINE KINASE,CK [CHEM] Routine 11/05/17 00:00 CREATINE KINASE,CK [CHEM] Timed 11/05/17 06:00 CREATINE KINASE,CK [CHEM] Timed - Plan Plan:: CK continues to rise but it low overall. Will continue to monitor labs today. Once the CK starts to fall he can be discharged home. In the meantime continue IVF @ 150ml/hr. -Restart home meds -SCDs, lovenox 40mg q daily, and baby asa to prevent DVT -Continue regular diet -Up with assist of RN or with walker/crutches
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
--- NOTE | 2017-11-05 13:35 | CR ---
EXAM DATE: 11/03/17 PATIENT'S AGE: 42 Patient: JANNET HERNANDEZ Facility: [place], [place] Site . Site : 1975 Study: XRay Extremity Right femur [id number]/15/2018 7:13:59 PM Ordering Physician: Doctor Yanes Final Report: Indication: Injury and pain Technique: Right femur 4 views Comparison: None Findings: Bones: Alignment is normal. No fractures or bone lesions. Joint spaces: Unremarkable. Soft tissues: Unremarkable. Impression: No sign of acute injury. Normal right femur. Dictated by Marcio Tsang MD @ Nov 03 2017 7:34PM (Electronic Signature) Report Signed by Proxy. CYNTHIA
--- NOTE | 2017-11-06 09:17 | CT ---
EXAM DATE: 11/03/17 PATIENT'S AGE: 42 Patient: JANNET HERNANDEZ Facility: [place], [place] Site . Site : 1975 Study: CT Extremity Right [id number]/15/2018 8:24:21 PM Ordering Physician: Doctor Yanes Final Report: Indication: Trauma. Technique: CT right lower extremity hip through the knee with 100 cc Isovue 370 IV contrast Comparison: None. Findings: Bones: Alignment is normal. No fractures or bone lesions. Joints: Unremarkable. Soft tissues: No sign of arterial injury. Relatively small subcutaneous contusion is in the medial right thigh about the greater saphenous vein. No other soft tissue abnormality. Impression: Subcutaneous contusion in the medial right thigh is present about the greater saphenous vein. Venous injury of doubtful significance is possible. No sign of arterial injury. Remainder of the exam is unremarkable. Please note that all CT scans at this facility use dose modulation, iterative reconstruction, and/or weight-based dosing when appropriate to reduce radiation dose to as low as reasonably achievable. Dictated by Marcio Tsang MD @ Nov 03 2017 8:42PM (Electronic Signature) Report Signed by Proxy. CYNTHIA
== END 2017-11-04 13:50 | disposition home or self-care (01) ==
LOC: MW.ED 19:00 → MW.MS 20:26
PROVIDERS: ADMIT Surgery; ATTEND Surgery
DX: S87.81XA Crushing injury of right lower leg, initial encounter (principal); E03.9 Hypothyroidism, unspecified; Z79.899 Other long term (current) drug therapy; F32.9 Major depressive disorder, single episode, unspecified; W20.8XXA Other cause of strike by thrown, projected or falling object, initial encounter
CPT/HCPCS: 36415; 73552; 73706; 80048; 80053; 81003; 82550; 85025; 85610; 86850; 86900; 86901; 96361; 96374; 96375; 96376; 99285; A9270; G0390; J1170; J1650; J2405; J7040; Q9967; 96372; G0378